=== PATIENT | female | born 1975 | race Two or more races ===

== ENCOUNTER 2021-09-29 18:09 | Observation (INO) | payer OTHER ==
[2021-09-29 18:52] LABS: HEMATOCRIT 35.2 % (32.4-45.2); HEMOGLOBIN 12.5 G/dL (10.7-15.3); MCH 31.8 pg (25.7-33.7); MCHC 35.5 g/dl (32.0-36.0); MEAN CELL VOLUME 89.4 fl (80-96); MEAN PLT VOLUME 7.8 fl (7.5-11.1); PLATELET COUNT 198.1 10^3/uL (134-434); RBC 3.94 10^6/uL (3.60-5.2); RDW 14.6 % (11.6-15.6); WHITE BLOOD COUNT 3.1 10^3/uL (4.0-10.8)
[2021-09-29 19:07] LABS: ALBUMIN 3.9 g/dl (3.4-5.0); BILIRUBIN,TOTAL 0.3 mg/dl (0.2-1); CALCIUM 8.9 mg/dl (8.5-10); CREATININE 0.8 mg/dl (0.55-1.3); TOT PROT 6.5 g/dl (6.4-8.2)
[2021-09-29 19:18] LABS: PLATELET ESTIMATE ADEQUATE
[2021-09-29 20:38] LABS: N-TERMINAL BNP 37.2 pg/ml (5-125)
[2021-09-29] MEDS ORDERED: SODIUM CHLORIDE 1,000 ML IV ONE (20:42)
[2021-09-29] MEDS ORDERED: IBUPROFEN 400 MG TABLET (FP) PO ONE ×2 (22:11→22:36)
[2021-09-30 00:17] VITALS: BMI 24.0
[2021-09-30] MEDS ORDERED: MELATONIN 5 MG TABLETS PO ONE (00:47)
[2021-09-30] MEDS ORDERED: ACETAMINOPHEN 325 MG TABLET (FP) PO PRN (01:26)
[2021-09-30 08:23] LABS: ALBUMIN 3.4 g/dl (3.4-5.0); BILIRUBIN,TOTAL 0.6 mg/dl (0.2-1); CALCIUM 8.4 mg/dl (8.5-10); CREATININE 0.7 mg/dl (0.55-1.3); TOT PROT 5.7 g/dl (6.4-8.2)
[2021-09-30] MEDS ORDERED: ALBUTEROL SO4 2.5/IPRATROPIUM 0.5 INH SOL 3 ML VIAL.NEB. NEB PRN (08:23)
[2021-09-30 10:28] LABS: HEMATOCRIT 34.9 % (32.4-45.2); HEMOGLOBIN 11.8 GM/dL (10.7-15.3); MCH 30.1 pg (25.7-33.7); MCHC 33.8 g/dl (32.0-36.0); MEAN CELL VOLUME 89.2 fl (80-96); PLATELET COUNT 197 10^3/uL (134-434); RBC 3.91 M/mm3 (3.60-5.2); RDW 13.8 % (11.6-15.6); WHITE BLOOD COUNT 3.3 K/mm3 (4.0-10.0)
[2021-09-30 14:06] VITALS: BP 121/73; PULSE 74; TEMP 98.4
== END 2021-09-30 18:57 | disposition home or self-care (01) ==
LOC: FER 18:09 → FM/S 18:44
PROVIDERS: ADMIT Internal Medicine
PROC: 3E0337Z Introduction of Electrolytic and Water Balance Substance into Peripheral Vein, Percutaneous Approach (ICD-10-PCS; principal; 2021-09-29)
DX: R06.09 Other forms of dyspnea (principal); R94.31 Abnormal electrocardiogram [ECG] [EKG]; Z29.8 Encounter for other specified prophylactic measures; Z20.822 Contact with and (suspected) exposure to COVID-19; R53.83 Other fatigue; E87.1 Hypo-osmolality and hyponatremia
CPT/HCPCS: 36415; 71045-TC-FY; 80053; 80061; 82436; 83880; 83935; 84133; 84300; 84443; 84484; 84703; 85027; 93005; 93306-TC; 99285-25; C9803-CS; G0378; U0003; U0005